=== PATIENT | male | born 1955 ===

== ENCOUNTER 2020-10-05 04:50 | Day surgery (SDC) | payer OTHER ==
[~2020-10-05 04:50] MED LIST: ACID REDUCER20 M1 PO; ARICEPT5 MG PO; AVAPRO300 MG PO; BACLOFEN10 MG PO; BUPROPION XL450 MG PO; MECLIZINE HCL12.5 MG PO; MELOXICAM15 MG PO; NOVOLIN N100 UNIT/1; SONATA10 MG PO; TRULICITY3 MG/0.5 M
[2020-10-05] MEDS ORDERED: PERCOCET 5-3251 EACH PO (10:39)
== END 2020-10-05 13:00 | disposition home or self-care (01) ==
LOC: CIR.AMB 04:50
PROVIDERS: ATTEND Surgery
DX: N52.8 Other male erectile dysfunction (principal); Z20.822 Contact with and (suspected) exposure to COVID-19
CPT/HCPCS: 54405; C1813